=== PATIENT | male | born 1950 | race Caucasian/White ===

== ENCOUNTER 2017-11-22 04:25 | Observation (INO) | payer MEDICARE ==
[2017-11-22] VITALS (7 sets, daily range): BP systolic 165–203; BP diastolic 86–92; PULSE 82–99; RESP 18–20; TEMP 97.8–99.5; O2SAT 94–98
[~2017-11-22 04:25] MED LIST: ACETAMINOPHEN 500 MG CPLT PO PRN; CLON0.1T PO; DEXTROSE 50% IN WATER 50 ML VIAL(D50) IV PUSH PRN; GLIP10TA6 PO; GLUCAGON 1 MG/ML VIAL OTHER PRN; METF1000 PO; METO50TA PO; NITROGLYCERIN 0.4 MG SL 25 TABS/BTL SL PRN; PRAV10TA PO; RESP: ALBUTEROL 2.5 MG/3 ML NEB (PRN) NEB; SODIUM CHLORIDE 0.9% FLUSH 10 ML FLUSH IV FLUSH PRN; TAMS0.4C4
[2017-11-22] MEDS ORDERED: OMEP20TA93 PO (04:41)
[2017-11-22] MEDS ORDERED: TOFR50TA PO (04:41)
[2017-11-22] MEDS ORDERED: FENO160T PO (04:41)
[2017-11-22] MEDS ORDERED: HYDR-3801 PO (04:41)
[2017-11-22] MEDS ORDERED: MONT10TA4 PO (04:41)
[2017-11-22] MEDS: HEPARIN SODIUM - SQ 10,000 UNITS/ML VIAL SQ SCH ×3 (05:50→19:36)
[2017-11-22 07:48] LABS: TROPONIN I LESS THAN 0.02 NG/ML (0.02-0.05)
[2017-11-22] MEDS: INSULIN ASPART SUPPLEMENTAL SCALE SQ SCH ×4 (08:00→19:44)
[2017-11-22] MEDS: METOPROLOL TARTRATE 50 MG TAB PO SCH ×2 (08:25→19:35)
[2017-11-22] MEDS: FENOFIBRATE 145 MG TAB PO SCH (08:25)
[2017-11-22] MEDS: PANTOPRAZOLE SOD 20 MG DELAYED RELEASE TAB PO SCH (08:25)
[2017-11-22] MEDS: PRAVASTATIN SOD 10 MG TAB PO SCH (08:25)
[2017-11-22] MEDS: ASPIRIN 325 MG TAB PO SCH (08:25)
[2017-11-22] MEDS: cloNIDine HCL 0.1 MG TAB PO SCH ×2 (08:25→19:35)
[2017-11-22] MEDS: hydrALAZINE HCL 50 MG TAB PO SCH ×3 (08:25→18:05)
[2017-11-22] MEDS: SODIUM CHLORIDE 0.9% FLUSH 10 ML FLUSH IV FLUSH SCH ×2 (08:26→19:35)
[2017-11-22] MEDS ORDERED: hydrALAZINE HCL 100 MG TAB PO SCH (09:00)
[2017-11-22] MEDS ORDERED: methylPREDNISolone SOD SUCC 125 MG/2 ML VIAL IV PUSH ONE (11:00)
[2017-11-22] MEDS: LEVOFLOXACIN 500 MG PREMIX INJ 100 ML IV SCH (11:46)
[2017-11-22 12:10] LABS: TROPONIN I LESS THAN 0.02 NG/ML (0.02-0.05)
--- NOTE | 2017-11-22 12:59 | HHI.HP ---
[facility] Fredy Parker MD Admission Diagnosis Diagnoses: Chief Complaint: Shortness of breath Travel History International Travel<30 Days: No Contact w/Intl Traveler <30 Da: No Traveled to Known Affected Are: No History of Present Illness This patient is a 67-year-old gentleman with a known history of COPD and hypertension. He had increased shortness of breath with increased work of breathing for the last several days. He called his primary care doctor but was unable to see them in a short amount of time so he came to the emergency room. Patient has been taking his home metered-dose inhaler but does not have a nebulizer. Patient also has been coughing quite and his blood pressure was very very elevated 209/89 when he arrived. There is is that time he has improved his blood pressure with his medications. There is vague chest discomfort which is worse with coughing. Cardiac enzymes and EKG have been done cardiac enzymes are negative. Review of Systems Constitutional: DENIES: Diaphoretic episodes, Fatigue, Fever, Weight gain, Weight loss, Chills, Dizziness, Change in appetite, Night Sweats Endocrine: DENIES: Heat/cold intolerance, Polydipsia, Polyuria, Polyphagia Eyes: DENIES: Blurred vision, Diplopia, Eye inflammation, Eye pain, Vision loss , Photosensitivity, Double Vision Ears, nose, mouth, throat: DENIES: Tinnitus, Hearing loss, Vertigo, Nasal discharge, Oral lesions, Throat pain, Hoarseness, Ear Pain, Running Nose, Epistaxis, Sinus Pain, Toothache, Odynophagia Respiratory: COMPLAINS OF: Cough, Shortness of breath, DENIES: Apneas, Snoring , Wheezing, Hemoptysis, Sputum production Cardiovascular: COMPLAINS OF: Dyspnea on Exertion, DENIES: Chest pain, Palpitations, Syncope, PND, Lower Extremity Edema, Orthopnea, Claudication Gastrointestinal: DENIES: Abdominal pain, Black stools, Bloody stools, Constipation, Diarrhea, Nausea, Vomiting, Difficulty Swallowing, Anorexia Genitourinary: DENIES: Sexual dysfunction, Urinary frequency, Urinary incontinence, Urgency, Hematuria, Dysuria, Nocturia, Penile Discharge, Testicular Pain, Testicular Swelling Musculoskeletal: DENIES: Joint pain, Muscle aches, Stiffness, Joint Swelling, Back pain, Neck pain Integumentary: DENIES: Abnormal pigmentation, Nail changes, Pruritus, Rash Hematologic/lymphatic: DENIES: Bruising, Lymphadenopathy Immunologic/allergic: DENIES: Eczema, Urticaria Neurologic: DENIES: Abnormal gait, Headache, Localized weakness, Paresthesias, Seizures, Speech Problems, Tremor, Poor Balance Psychiatric: DENIES: Anxiety, Confusion, Mood changes, Depression, Hallucinations, Agitation, Suicidal Ideation, Homicidal Ideation, Delusions Except as stated in HPI: all other systems reviewed are Neg Past Family Social History Past Medical History With a history of COPD, diabetes mellitus Hypertension Past Surgical History Tonsils Appendectomy Multiple sinus surgery Right shoulder surgery Reported Medications Reviewed in the EMR Allergies: Coded Allergies: No Known Allergies (Verified Allergy, Unknown, 06/09/04) Active Ordered Medications Viewed in the EMR Family History Mother from dementia a in her 80s Father from a stroke in his 80s Social History No current tobacco but a [id number]-putt history No alcohol Retired Physical Exam Vital Signs Vital Signs Date Time Temp Pulse Resp B/P (MAP) Pulse Ox O2 Delivery O2 Flow Rate FiO2 11/22/17 08:37 99.5 90 18 165/90 (115) 96 165/90 (115) 11/22/17 05:40 97 Nasal Cannula 3.00 11/22/17 05:40 82 11/22/17 05:00 99.2 84 20 203/92 (129) 94 Physical Exam GENERAL: This is a well-nourished, well-developed patient, coughing HEAD: Atraumatic. Normocephalic. No temporal or scalp tenderness. EYES: Pupils equal round and reactive. Extraocular motions intact. No scleral icterus. No injection or drainage. ENT: Nose without bleeding, purulent drainage or septal hematoma. Throat without erythema, tonsillar hypertrophy or exudate. Uvula midline. Airway patent. NECK: Trachea midline. No JVD or lymphadenopathy. Supple, nontender, no meningeal signs. CARDIOVASCULAR: Regular rate and rhythm without murmurs, gallops, or rubs. RESPIRATORY: Decreased breath sounds bilaterally with scattered fine wheezes GASTROINTESTINAL: Abdomen soft, non-tender, nondistended. No hepato-splenomegaly , or palpable masses. No guarding. MUSCULOSKELETAL: Extremities without clubbing, cyanosis, or edema. No joint tenderness, effusion, or edema noted. No calf tenderness. Negative Homans sign bilaterally. NEUROLOGICAL: Awake and alert. Cranial nerves II through XII intact. Motor and sensory grossly within normal limits. Five out of 5 muscle strength in all muscle groups. Normal speech. Laboratory Laboratory Tests Test 11/22/17 07:10 11/22/17 11:27 Total Creatine Kinase 106 178 Troponin I LESS THAN 0.02 LESS THAN 0.02 Imaging Chest x-ray on my review shows no acute process Course Transferred from the emergency room in [facility] VTE Risk Assessment [facility] VTE Risk Assessment: Mod/High Risk (score >= 2) Caprini Risk Assessment Model Point Value = 1 Point Value = 2 Point Value = 3 Point Value = 5 Age 41-60 Minor surgery BMI > 25 kg/m2 Swollen legs Varicose veins or History of unexplained or recurrent spontaneous Oral contraceptives or hormone replacement Sepsis (< 1 month) Serious lung disease, including pneumonia (< 1 month) Abnormal pulmonary function Acute myocardial infarction Congestive heart failure (< 1 month) History of inflammatory bowel disease Medical patient at bed rest Age 61-74 Arthroscopic surgery Major open surgery (> 45 min) Laparoscopic surgery (> 45 min) Malignancy Confined to bed (> 72 hours) Immobilizing plaster cast Central venous access Age >= 75 History of VTE Family history of VTE Factor V Leiden Prothrombin [id number] Lupus anticoagulant Anticardiolipin antibodies Elevated serum homocysteine Heparin-induced thrombocytopenia Other congenital or acquired thrombophilia Stroke (< 1 month) Elective arthroplasty Hip, pelvis, or leg fracture Acute spinal cord injury (< 1 month) Prophylaxis Regimen Total Risk Factor Score Risk Level Prophylaxis Regimen 0-1 Low Early ambulation 2 Moderate Order ONE of the following: *Sequential Compression Device (SCD) *Heparin 5000 units SQ BID 3-4 Higher Order ONE of the following medications: *Heparin 5000 units SQ TID *Enoxaparin/Lovenox 40 mg SQ daily (WT < 150 kg, CrCl > 30 mL/min) *Enoxaparin/Lovenox 30 mg SQ daily (WT < 150 kg, CrCl > 10-29 mL/min) *Enoxaparin/Lovenox 30 mg SQ BID (WT < 150 kg, CrCl > 30 mL/min) AND/OR *Sequential Compression Device (SCD) 5 or more Highest Order ONE of the following medications: *Heparin 5000 units SQ TID (Preferred with Epidurals) *Enoxaparin/Lovenox 40 mg SQ daily (WT < 150 kg, CrCl > 30 mL/min) *Enoxaparin/Lovenox 30 mg SQ daily (WT < 150 kg, CrCl > 10-29 mL/min) *Enoxaparin/Lovenox 30 mg SQ BID (WT < 150 kg, CrCl > 30 mL/min) AND *Sequential Compression Device (SCD) Assessment and Plan Problem List: (1) COPD exacerbation ICD Code: J44.1 - Chronic obstructive pulmonary disease with (acute) exacerbation Plan: Continue with bronchodilators, IV steroids, IV antibiotics for now Cardiac enzymes are very negative Patient will likely need a nebulizer at home Follow-up EKG Code Status Full code Discussed Condition With Patient, respiratory therapist at bedside Bessie Rodriguez MD Nov 22, 2017 12:59
[2017-11-22] MEDS: RESP: ALBUTEROL 2.5 MG/IPRATROPIUM 0.5 MG NEB (SCH) NEB ×2 (14:01→19:41)
--- NOTE | 2017-11-22 14:13 | EKG ---
Date Performed: 11/22/2017 Time Performed: 07:19:39 PTAGE: 67 years EKG: Sinus rhythm NONSPECIFIC ST & T-WAVE ABNORMALITY Compared to previous tracing R wave progression has improved, edson cuevas due to lead placement differences. Prior inferior infarct pattern is less prominent BORDERLINE E CG PREVIOUS TRACING : 06/07/2004 12.41 DOCTOR: Allen Gonzalez Interpretating Date/Time 11/22/2017 14:12:58
[2017-11-22] MEDS: methylPREDNISolone SOD SUCC 40 MG/1 ML VIAL IV PUSH SCH (18:05)
[2017-11-22] MEDS: TAMSULOSIN HCL 0.4 MG CAP PO SCH (19:34)
[2017-11-22] MEDS: IMIPRAMINE HCL 25 MG TAB PO SCH (19:35)
[2017-11-22] MEDS: MONTELUKAST SODIUM 10 MG TAB PO SCH (19:35)
[2017-11-23] VITALS (8 sets, daily range): BP systolic 132–192; BP diastolic 76–93; PULSE 69–93; RESP 18–22; TEMP 96.4–97.2; O2SAT 94–98
[2017-11-23] MEDS: methylPREDNISolone SOD SUCC 40 MG/1 ML VIAL IV PUSH SCH ×2 (00:28→10:03)
[2017-11-23] MEDS ORDERED: diphenhydrAMINE HCL 25 MG CAP PO ONE (00:30)
[2017-11-23] MEDS ORDERED: cloNIDine HCL 0.1 MG TAB PO ONE (01:45)
[2017-11-23] MEDS ORDERED: LORazepam 0.5 MG TAB PO ONE (01:45)
[2017-11-23] MEDS: HEPARIN SODIUM - SQ 10,000 UNITS/ML VIAL SQ SCH ×3 (05:28→21:02)
[2017-11-23 06:31] LABS: AUTOMATED NEUTROPHIL # 6.4 TH/MM3 (1.8-7.7); BASOPHIL % 0.2 % (0.0-2.0); EOSINOPHIL % 0.1 % (0.0-4.0); HEMATOCRIT 36.7 % (39.0-51.0); HEMOGLOBIN 12.2 GM/DL (13.0-17.0); LYMPH % 7.7 % (9.0-44.0); LYMPHOCYTE # 0.6 TH/MM3 (1.0-4.8); MEAN CELL VOLUME 82.7 FL (80.0-100.0); MEAN CORPUSCULAR HEMOGLOBIN 27.6 PG (27.0-34.0); MEAN CORPUSCULAR HGB CONC 33.3 % (32.0-36.0); MEAN PLATELET VOLUME 7.9 FL (7.0-11.0); MONOCYTE # 0.1 TH/MM3 (0-0.9); PLATELET COUNT 169 TH/MM3 (150-450); RED BLOOD COUNT 4.43 MIL/MM3 (4.50-5.90); RED CELL DISTRIBUTION WIDTH 13.2 % (11.6-17.2); WHITE BLOOD COUNT 7.2 TH/MM3 (4.0-11.0)
[2017-11-23 06:41] LABS: BICARBONATE 27.7 MEQ/L (21.0-32.0); CALCIUM 8.9 MG/DL (8.5-10.1)
[2017-11-23 06:45] LABS: CREATININE 1.1 MG/DL (0.60-1.30)
[2017-11-23] MEDS: RESP: ALBUTEROL 2.5 MG/IPRATROPIUM 0.5 MG NEB (SCH) NEB ×3 (07:36→20:52)
[2017-11-23] MEDS: INSULIN ASPART SUPPLEMENTAL SCALE SQ SCH ×4 (10:02→21:08)
[2017-11-23] MEDS: cloNIDine HCL 0.1 MG TAB PO SCH ×2 (10:03→21:01)
[2017-11-23] MEDS: ASPIRIN 325 MG TAB PO SCH (10:03)
[2017-11-23] MEDS: PRAVASTATIN SOD 10 MG TAB PO SCH (10:04)
[2017-11-23] MEDS: SODIUM CHLORIDE 0.9% FLUSH 10 ML FLUSH IV FLUSH SCH ×2 (10:04→20:22)
[2017-11-23] MEDS: PANTOPRAZOLE SOD 20 MG DELAYED RELEASE TAB PO SCH (10:04)
[2017-11-23] MEDS: FENOFIBRATE 145 MG TAB PO SCH (10:04)
[2017-11-23] MEDS: METOPROLOL TARTRATE 50 MG TAB PO SCH ×2 (10:04→21:01)
[2017-11-23] MEDS: hydrALAZINE HCL 50 MG TAB PO SCH ×3 (10:04→18:00)
[2017-11-23] MEDS: LEVOFLOXACIN 500 MG PREMIX INJ 100 ML IV SCH (10:09)
--- NOTE | 2017-11-23 10:26 | HHI.PR ---
Subjective Remarks Seen and evaluated today in follow-up, doing much better. Objective Vitals Vital Signs Date Time Temp Pulse Resp B/P (MAP) Pulse Ox O2 Delivery O2 Flow Rate FiO2 11/23/17 08:00 97.0 84 20 151/81 (104) 97 11/23/17 07:30 97 Nasal Cannula 1.00 11/23/17 04:04 96.8 79 22 142/76 (98) 98 11/23/17 00:00 96.6 89 22 192/93 (126) 94 11/22/17 20:00 99 11/22/17 20:00 97.8 91 20 192/91 (124) 96 11/22/17 19:40 98 Nasal Cannula 2.00 11/22/17 16:00 98.1 82 18 203/86 (125) 96 11/22/17 12:00 98.9 87 18 191/87 (121) 97 I/O 11/22/17 11/22/17 11/22/17 11/23/17 11/23/17 11/23/17 07:00 15:00 23:00 07:00 15:00 23:00 Intake Total 0 ml 840 ml 480 ml Output Total 600 ml Balance 0 ml 840 ml -120 ml Intake Oral 0 ml 840 ml 480 ml Output Urine Total 600 ml # Voids 1 6 # Bowel Movements 0 0 0 Result Diagram: 11/23/17 0500 11/23/17 0500 Objective Remarks GENERAL: This is a well-nourished, well-developed patient, in no apparent distress. CARDIOVASCULAR: Regular rate and rhythm without murmurs, gallops, or rubs. RESPIRATORY: improved breaths, still some wheezes GASTROINTESTINAL: Abdomen soft, non-tender, nondistended. Normal active bowel sounds MUSCULOSKELETAL: Extremities without clubbing, cyanosis, or edema. NEURO: Alert & Oriented x4 to person, place, time, situation. Moves all ext x4 A/P Problem List: (1) COPD exacerbation ICD Code: J44.1 - Chronic obstructive pulmonary disease with (acute) exacerbation Plan: Continue with bronchodilators, po steroids, IV antibiotics for now Cardiac enzymes are very negative Patient will likely need a nebulizer at home Follow-up Bessie Sheehan MD Nov 23, 2017 10:26
--- NOTE | 2017-11-23 18:01 | ECHRPT ---
Indication: SHORTNESS OF BREATH CONCLUSIONS Normal left ventricular size. Wall thickness is measured at the upper limits of normal. The left ventricular systolic function is normal with an estimated ejection fraction in the range of 55-60%. The left atrial size is mildly dilated. There is trace tricuspid valve regurgitation. The estimated pulmonary arterial pressure is 33.8 mmHg. A prominent epicardial fat pad is present. BP: 160 / 76 HR: 69 Rhythm: Sinus MEASUREMENTS (Male / Female) Normal Values Technical Quality:Fair 2D ECHO LV Diastolic Diameter PLAX 5.3 cm 4.2 - 5.9 / 3.9 - 5.3 cm LV Systolic Diameter PLAX 3.6 cm IVS Diastolic Thickness 1.0 cm 0.6 - 1.0 / 0.6 - 0.9 cm LVPW Diastolic Thickness 1.0 cm 0.6 - 1.0 / 0.6 - 0.9 cm LV Relative Wall Thickness 0.4 RV Internal Dim ED PLAX 3.2 cm LVOT Diameter 2.3 cm Aortic Root Diameter 3.1 cm LA Systolic Diameter LX 4.4 cm 3.0 - 4.0 / 2.7 - 3.8 cm M-MODE AV Cusp Separation MM 1.7 cm DOPPLER AV Peak Velocity 138.0 cm/s AV Peak Gradient 7.6 mmHg AV Mean Gradient 4.0 mmHg AV Velocity Time Integral 24.7 cm LVOT Peak Velocity 67.7 cm/s LVOT Peak Gradient 1.8 mmHg LVOT Velocity Time Integral 13.4 cm AV Area Cont Eq vti 2.3 cm AV Area Cont Eq pk 2.0 cm Mitral E Point Velocity 66.1 cm/s Mitral A Point Velocity 91.8 cm/s Mitral E to A Ratio 0.7 LV E' Lateral Velocity 8.5 cm/s Mitral E to LV E' Lateral Ratio 7.8 LV E' Septal Velocity 3.4 cm/s Mitral E to LV E' Septal Ratio 19.4 TR Peak Velocity 244.0 cm/s TR Peak Gradient 23.8 mmHg Right Atrial Pressure 10.0 mmHg Pulmonary Artery Systolic Pressu 33.8 mmHg Right Ventricular Systolic Press 33.8 mmHg PV Peak Velocity 68.4 cm/s PV Peak Gradient 1.9 mmHg FINDINGS LEFT VENTRICLE Normal left ventricular size. Wall thickness is measured at the upper limits of normal. The left ventricular systolic function is normal with an estimated ejection fraction in the range of 55-60%. RIGHT VENTRICLE Normal right ventricular size and systolic function. LEFT ATRIUM The left atrial size is mildly dilated. RIGHT ATRIUM The right atrial size is normal. ATRIAL SEPTUM The interatrial septum not well visualized. AORTA The aortic root and proximal ascending aorta are normal in size on limited imaging. MITRAL VALVE Structurally normal mitral valve. No mitral valve stenosis or regurgitation. AORTIC VALVE Trileaflet aortic valve. No aortic valve stenosis or regurgitation. TRICUSPID VALVE There is trace tricuspid valve regurgitation. The estimated pulmonary arterial pressure is 33.8 mmHg. PULMONARY VALVE The pulmonary valve is not well visualized. VESSELS The inferior vena cava was not well visualized. PERICARDIUM A prominent epicardial fat pad is present. Vipul Ariza MD (Electronically Signed) Final Date:23 November 2017 17:59
[2017-11-23] MEDS: IMIPRAMINE HCL 25 MG TAB PO SCH (21:00)
[2017-11-23] MEDS: MONTELUKAST SODIUM 10 MG TAB PO SCH (21:01)
[2017-11-23] MEDS: TAMSULOSIN HCL 0.4 MG CAP PO SCH (21:01)
[2017-11-23] MEDS: predniSONE 20 MG TAB PO SCH (21:01)
[2017-11-24] VITALS: BP 168/77; PULSE 82; RESP 20; TEMP 96.3; O2SAT 94
[2017-11-24] MEDS: HEPARIN SODIUM - SQ 10,000 UNITS/ML VIAL SQ SCH (06:00)
[2017-11-24] MEDS: RESP: ALBUTEROL 2.5 MG/IPRATROPIUM 0.5 MG NEB (SCH) NEB (07:35)
[2017-11-24 07:38] VITALS: O2SAT 97
[2017-11-24 08:00] VITALS: BP 151/69; PULSE 70; RESP 18; TEMP 97.7; O2SAT 96
[2017-11-24] MEDS: hydrALAZINE HCL 50 MG TAB PO SCH (08:16)
[2017-11-24] MEDS: ASPIRIN 325 MG TAB PO SCH (08:16)
[2017-11-24] MEDS: PRAVASTATIN SOD 10 MG TAB PO SCH (08:17)
[2017-11-24] MEDS: METOPROLOL TARTRATE 50 MG TAB PO SCH (08:17)
[2017-11-24] MEDS: PANTOPRAZOLE SOD 20 MG DELAYED RELEASE TAB PO SCH (08:17)
[2017-11-24] MEDS: predniSONE 20 MG TAB PO SCH (08:17)
[2017-11-24] MEDS: FENOFIBRATE 145 MG TAB PO SCH (08:19)
[2017-11-24] MEDS: cloNIDine HCL 0.1 MG TAB PO SCH (08:19)
[2017-11-24] MEDS: SODIUM CHLORIDE 0.9% FLUSH 10 ML FLUSH IV FLUSH SCH (08:20)
[2017-11-24] MEDS: INSULIN ASPART SUPPLEMENTAL SCALE SQ SCH ×2 (08:51→12:20)
--- NOTE | 2017-11-24 09:25 | EKG ---
Date Performed: 11/22/2017 Time Performed: 11:16:47 PTAGE: 67 years EKG: Sinus rhythm MINIMAL VOLTAGE CRITERIA FOR LVH, CONSIDER NORMAL VARIANT INFERIOR MYOCARDIAL INFARCTION ABNORMAL EC G PREVIOUS TRACING : 11/22/2017 07.19 DOCTOR: Raiza Engel Interpretating Date/Time 11/24/2017 09:18:43
[2017-11-24 09:30] VITALS: O2SAT 97
[2017-11-24] MEDS ORDERED: PRED20 PO (10:27)
[2017-11-24] MEDS ORDERED: NEBULIZER1 MI1 (10:27)
[2017-11-24] MEDS ORDERED: LEVO500T8 PO (10:27)
--- NOTE | 2017-11-24 10:28 | HHI.DCPOC ---
Discharge Care Plan Diagnosis: (1) COPD exacerbation Goals to Promote Your Health * To prevent worsening of your condition and complications * To maintain your health at the optimal level Directions to Meet Your Goals Take your medications as prescribed Follow your dietary instruction Follow activity as directed Keep your appointments as scheduled Take your immunizations and boosters as scheduled If your symptoms worsen call your PCP, if no PCP go to Urgent Care Center or Emergency Room Smoking is Dangerous to Your Health. Avoid second hand smoke Call the 24-hour hour crisis hotline for domestic abuse at Bessie Rodriguez MD Nov 24, 2017 10:28
--- NOTE | 2017-11-24 10:32 | HHI.DS ---
Discharge Summary Admission Date Nov 22, 2017 at 04:35 Discharge Date: Nov 24, 2017 Admitting Diagnosis (1) COPD exacerbation ICD Code: J44.1 - Chronic obstructive pulmonary disease with (acute) exacerbation Procedures none Brief History - From Admission This patient is a 67-year-old gentleman with a known history of COPD and hypertension. He had increased shortness of breath with increased work of breathing for the last several days. He called his primary care doctor but was unable to see them in a short amount of time so he came to the emergency room. Patient has been taking his home metered-dose inhaler but does not have a nebulizer. Patient also has been coughing quite and his blood pressure was very very elevated 209/89 when he arrived. There is is that time he has improved his blood pressure with his medications. There is vague chest discomfort which is worse with coughing. Cardiac enzymes and EKG have been done cardiac enzymes are negative. CBC/BMP: 11/23/17 0500 11/23/17 0500 Significant Findings Laboratory Tests Test 11/22/17 07:10 11/22/17 11:27 11/23/17 05:00 Troponin I LESS THAN 0.02 NG/ML LESS THAN 0.02 NG/ML Red Blood Count 4.43 MIL/MM3 (4.50-5.90) Hemoglobin 12.2 GM/DL (13.0-17.0) Hematocrit 36.7 % (39.0-51.0) Neutrophils (%) (Auto) 90.0 % (16.0-70.0) Lymphocytes (%) (Auto) 7.7 % (9.0-44.0) Lymphocytes # (Auto) 0.6 TH/MM3 (1.0-4.8) Random Glucose 203 MG/DL (74-106) Estimat Glomerular Filtration Rate 66 ML/MIN (>89) PE at Discharge GENERAL: This is a well-nourished, well-developed patient, in no apparent distress. CARDIOVASCULAR: Regular rate and rhythm without murmurs, gallops, or rubs. RESPIRATORY: improved breaths, still some wheezes GASTROINTESTINAL: Abdomen soft, non-tender, nondistended. Normal active bowel sounds MUSCULOSKELETAL: Extremities without clubbing, cyanosis, or edema. NEURO: Alert & Oriented x4 to person, place, time, situation. Moves all ext x4 Pt update on day of discharge Doing well today, and is ambulatory. He has passes walk test. Discharge plans discussed with patient he is agreeable Care plan discussed with pulmonary respiratory team Hospital Course Patient is seen and evaluated for shortness of breath and chest tightness likely due to acute COPD exacerbation. He did well with bronchodilators and with steroids. He required oxygen for a few days along with IV antibiotics but this improved dramatically. He was discharged home Pt Condition on Discharge: Good Discharge Disposition: Discharge Home Discharge Time: <= 30 minutes Discharge Instructions DIET: Follow Instructions for: As Tolerated, No Restrictions Activities you can perform: Regular-No Restrictions Follow up Referrals: PCP Follow-up New Medications: Levofloxacin (Levofloxacin) 500 Mg Tablet 500 MG PO DAILY for Infection for 2 Days, #2 TAB 0 Refills Nebulizer (Nebulizer) 1 Mis Mis EA .XX DIRECTED for Breathing Treatment, #1 0 Refills Prednisone (Prednisone) 20 Mg Tab 20 MG PO DIRECTED for Inflammation, #15 TAB 0 Refills 40 MG twice a day x 3 days, then 20 MG daily x 3 days, then 10 MG daily x 3 days Bessie Rodriguez MD Nov 24, 2017 10:32
[2017-11-24] MEDS ORDERED: LEVOFLOXACIN 500 MG TAB PO SCH (11:00)
[2017-11-24 12:00] VITALS: BP 159/74; PULSE 82; RESP 18; TEMP 96.6; O2SAT 96
[2017-11-30] MEDS ORDERED: IPRASOL INH (12:12)
== END 2017-11-24 13:37 | disposition home or self-care (01) ==
LOC: PHEDDLT 04:25 → PH3A 04:35
PROVIDERS: ADMIT Hospitalist; ATTEND Hospitalist
DX: J44.1 Chronic obstructive pulmonary disease with (acute) exacerbation (principal); I10 Essential (primary) hypertension; R07.89 Other chest pain; R05 Cough; E11.9 Type 2 diabetes mellitus without complications; Z82.3 Family history of stroke; Z87.891 Personal history of nicotine dependence
CPT/HCPCS: 71045; 80048; 80053; 82550; 82948; 83880; 84484; 85025; 85610; 85730; 93005; 93306; 94618; 94640; 94664; 96365; 96366; 96372; 96375; 96376; 97162; 99285; G0378; G8987; G8988; J1644; J1815; J1956; J2920; J2930; J7512; J7613